=== PATIENT | female | born 1960 | race Caucasian/White ===

== ENCOUNTER 2017-06-18 11:26 | Day surgery (SDC) | payer OTHER ==
[~2017-06-18] VITALS: Ht 160 cm; Wt 89.8 kg
[~2017-06-18 11:26] MED LIST: ASCORBIC ACID500 M3 PO; CENTRUM COMPLE1 EACH PO; CHILDREN'S ASPI81 M1 PO; FISH OIL 1,0001 EAC7 PO; NASACORT10.8 ML BOTH NARES; PAXIL10 MG PO; PLAQUENIL200 MG PO; SYNTHROID137 MCG PO; TENORETIC 501 TABLET PO; VITAMIN D31000 UNI2 PO
[2017-06-18 11:43] VITALS: BP 140/63
[2017-06-18 15:50] VITALS: BP 151/65
[2017-06-18 16:10] VITALS: BP 127/68
== END 2017-06-18 16:30 | disposition home or self-care (01) ==
LOC: SDC 11:26
DX: H33.42 Traction detachment of retina, left eye (principal); I10 Essential (primary) hypertension; E89.0 Postprocedural hypothyroidism; K21.9 Gastro-esophageal reflux disease without esophagitis; M32.9 Systemic lupus erythematosus, unspecified; E78.2 Mixed hyperlipidemia; F41.1 Generalized anxiety disorder; Z79.82 Long term (current) use of aspirin; Z87.891 Personal history of nicotine dependence
CPT/HCPCS: 93005; J0690; J1100; J3300